=== PATIENT | female | born 1950 | race Caucasian/White ===

== ENCOUNTER 2019-11-19 07:22 | Outpatient (CLI) | payer MEDICARE, BC, SELFPAY ==
--- NOTE | 2019-11-19 08:34 | MM_ITS ---
WS: [id number] BILATERAL SCREENING MAMMOGRAM WITH NILA DISPLACEMENT VIEWS. CAD PERFORMED. HISTORY: SCREENING COMPARISON: 11/09/2018, 10/16/2018, 10/13/2017. Bilateral craniocaudal and mediolateral like views are performed. Nila displacement views in CC and MLO projection also performed. Breasts composition: The breasts are heterogeneously dense, which may obscure small masses. Bilatera l prepectoral implants remain intact. Hyperdense masses in the medial inferior RIGHT breast are stabl e. There are a few benign calcifications within each breast. No suspicious persistent masses. FOLLOW-UP: 1 Year Follow-up MM/[id number] IMPRESSION: BI-RADS: 2-Benign
== END 2019-11-19 07:23 | disposition home or self-care (01) ==
PROVIDERS: Family Provider Family Medicine; PCP Family Medicine; Visit Provider Family Medicine
DX: Z12.31 Encounter for screening mammogram for malignant neoplasm of breast (principal)
CPT/HCPCS: 77067

== ENCOUNTER 2020-11-20 15:17 | Outpatient (CLI) | payer MEDICARE, BC, SELFPAY ==
--- NOTE | 2020-11-20 15:23 | MM_ITS ---
WS: [id number] BILATERAL SCREENING MAMMOGRAM WITH NILA DISPLACEMENT VIEWS. CAD PERFORMED. HISTORY: SCREENING COMPARISON: 11/19/2019 and 11/09/2018 Bilateral craniocaudal and mediolateral like views are performed. Nila displacement views in CC and MLO projection also performed. Breasts composition: The breasts are heterogeneously dense, which may obscure small masses. Prepecto ral implants are intact. There are benign calcifications in each breast. Stable nodules in the medial RIGHT breast. No suspicious calcification or mass. MM/[id number] IMPRESSION: BI-RADS: 2-Benign FOLLOW-UP: 1 Year Follow-up
== END 2020-11-20 15:18 | disposition home or self-care (01) ==
LOC: RADSHAW 15:21
PROVIDERS: Family Provider Family Medicine; PCP Family Medicine; Visit Provider Family Medicine
DX: Z12.31 Encounter for screening mammogram for malignant neoplasm of breast (principal)
CPT/HCPCS: 77067

== ENCOUNTER 2021-12-30 10:28 | Outpatient (CLI) | payer MEDICARE, BC, SELFPAY ==
--- NOTE | 2021-12-30 10:38 | MM_ITS ---
WS: [id number] BILATERAL DIGITAL SCREENING MAMMOGRAPHY WITH CAD CLINICAL INFORMATION: SCREENING HISTORY: Screening mammogram. No current complaints. COMPARISON: November 20, 2020 TECHNIQUE: Bilateral CC and MLO views. FINDINGS: Stable bilateral breast implants appear mammographically intact. The breasts are composed of heterogeneous fibroglandular density tissue, which can limit the detectio n of small underlying mass lesions. Stable dystrophic and lucent centered calcifications RIGHT breast . Stable ovoid nodule RIGHT inferior breast. No suspicious mass, asymmetry, calcifications, or scott ectural distortion. No evidence of malignancy. MM/[id number] IMPRESSION: BI-RADS: 2-Benign FOLLOW UP: 1 Year Follow-up Recommend return to annual screening mammography.
== END 2021-12-30 10:29 | disposition home or self-care (01) ==
LOC: RADSHAW 10:36
PROVIDERS: Family Provider Family Medicine; PCP Family Medicine; Visit Provider Family Medicine
DX: Z12.31 Encounter for screening mammogram for malignant neoplasm of breast (principal)
CPT/HCPCS: 77067

== ENCOUNTER 2023-01-04 11:05 | Outpatient (CLI) | payer MEDICARE, BC, SELFPAY ==
--- NOTE | 2023-01-04 11:23 | MM_ITS ---
WS: [id number] BILATERAL SCREENING DIGITAL BREAST MAMMOGRAPHY WITH NILA DISPLACEMENT VIEWS. CAD PERFORMED. HISTORY: SCREENING COMPARISON: 12/30/2021, 11/20/2020 Bilateral craniocaudal and mediolateral oblique views are performed with tomosynthesis and SM. Nila displacement views in CC and MLO projection also performed. Breasts composition: The breasts are heterogeneously dense, which may obscure small masses. Benign calcification upper-outer quadrant of the RIGHT breast. There is an additional calcification i n the medial RIGHT breast. There are no suspicious masses or distortion. Breast implants are intact. No capsular contraction. Very similar to prior studies. IMPRESSION: MM/[place] [id number] BI-RADS: 2-Benign FOLLOW-UP: 1 Year Follow-up
== END 2023-01-04 11:06 | disposition home or self-care (01) ==
PROVIDERS: PCP Family Medicine; Visit Provider Family Medicine
DX: Z12.31 Encounter for screening mammogram for malignant neoplasm of breast (principal)
CPT/HCPCS: 77063; 77067

== ENCOUNTER 2024-07-05 10:36 | Inpatient (IN) | payer MEDICARE, BC, SELFPAY ==
[2024-07-05] VITALS (20 sets, daily range): BP systolic 111–175; BP diastolic 51–95; PULSE 74–95; RESP 15–18; TEMP 36.6–38.6; O2SAT 90–96; BMI 29.4
[2024-07-05 11:27] LABS: Basophils % 0.2 %; Eosinophils % 0.1 %; Hematocrit 44.3 % (36-47); Lymphocytes # 1.1 10^3/uL (0.8-4.8); Lymphocytes % 7.7 %; Mean Corpuscular HGB Conc 33.4 g/dL (30-55); Mean Corpuscular Hemoglobin 32.2 pg (27-33); Mean Corpuscular Volume 96.5 fl (85-98); Mean Platelet Volume 9.8 fL (7.4-10.4); Monocytes # 0.9 10^3/uL (0.2-0.9); Monocytes % 6.6 %; Neutrophils # 11.98 10^3/uL (1.8-7.7); Neutrophils % 84.8 %; Nucleated Red Blood Cells % 0 %; Platelet Count 185 10^3/cmm (157-399); Red Blood Count 4.59 10^6/uL (3.85-5.65); Red Cell Distribution Width 12.9 % (12.1-15.1); White Blood Count 14.14 10^3/uL (3.29-11.43)
--- NOTE | 2024-07-05 11:27 | XR_ITS ---
WS: [id number] Examination: XR KUB [id number] Reason for Exam: abd pain Date: 07/05/2024 Comparison: None. Findings: No free air is identified on the film labeled upright. Surgical clips are identified in the right upper quadrant Air and stool are seen within the colon. No abnormally distended loops of small bowel are identified. The psoas margins are identified. XR/XR KUB [id number] Impression: No obstruction or free air is suspected.
--- NOTE | 2024-07-05 11:31 | CT_ITS ---
WS: [id number] CT ABDOMEN AND PELVIS WITH CONTRAST HISTORY: abd pain TECHNIQUE: Imaging performed of the abdomen and pelvis with IV contrast. Single phase imaging of the abdomen. Coronal and sagittal reformats are submitted. All CT scans at [facility] use at sofi st one of these dose optimization techniques: automated exposure control; mA and/or kV adjustment per patient size (includes targeted exams where dose is matched to clinical indication); or iterative re construction. IV CONTRAST: Omnipaque 350; 100 mL IV. Oral contrast: No DLP: 556.11 mGy.cm COMPARISON: 05/27/2017 Lower thorax: Lung bases are clear. Heart is normal size. Large hiatal hernia. Liver/biliary system: Normal size liver. There is mild intrahepatic duct dilatation which was also pr esent in 2017. Gallbladder: Status post cholecystectomy. Pancreas: Normal size pancreas and pancreatic duct. No adjacent inflammation. Spleen: Normal size spleen. No mass or infarct. Adrenal glands: Mild bilateral adrenal gland thickening. Right kidney: Cortical cyst 2.2 x 1.9 cm in the upper pole. No obstruction. Left: No obstruction. Several cortical cysts with the largest measuring 1.5 x 1.4 cm. Aorta: Moderate atherosclerosis with no aneurysm. Calcified plaque at the origins of the SMA and suresh ac axis. Lymphadenopathy: Small lymph node in the RIGHT lower quadrant with hyperemia. Free fluid: There is small amount of free fluid in the RIGHT lower quadrant. GI tract: Stomach is nondistended. No small bowel obstruction. Increasing fluid in the mid to distal small bowel. The cecum is very deep within the RIGHT pelvis. There is a focal perforation centered in the RIGHT lower quadrant closely associated with the appendix. The appendix is visualized and is enl arged and edematous measuring up to 9 mm. Along the distal tip of the appendix there is infiltrating air which is extraluminal. There is no abscess yet. There is fluid extending distally adjacent to sev eral small bowel loops with mild wall thickening and hyperemia. Additional constipation in the distal colon. Numerous diverticula distally in the sigmoid. There is adjacent wall thickening of the sigmoi d which is contiguous with the inflammatory process in the RIGHT lower quadrant. Abdominal wall: Unremarkable abdominal wall. No hernia. Pelvis: Mildly distended bladder. Small amount of free fluid in the RIGHT adnexa along with soft tiss ue inflammation. Bones: Increase in lumbar lordosis. CT/CT abdomen pelvis w con* [id number] IMPRESSION: 1. Free air associated with the perforated viscus in the RIGHT lower quadrant. Free air is contiguous with an abnormal appendix. Favor appendicitis with rupt ure with adjacent free air. No abscess at this time. 2. Small amount of free fluid extending into the RIGHT adnexa contiguous with the abnormal appendix. 3. There is also additional mild inflammation of the sigmoid due to its close association with the RIGHT lower quadrant inflammation. Secondary findings of d iverticulitis. 4. Prior cholecystectomy. 5. Large hiatal hernia. Notified Blanca Peguero MD at 07/05/2024 12:57 PM.
--- NOTE | 2024-07-05 11:39 | ED_ITS ---
HPI - Abdominal Pain 2 General: Chief Complaint: Abdominal Pain Stated Complaint: bowel trouble Time Seen by Provider: 07/05/24 11:26 Source: patient Mode of arrival: ambulatory Limitations: no limitations History of Present Illness: 73-year-old female states she been havin g some abdominal pain since Tuesday states it started as an upper abdominal pain but states that today its gotten much worse and is now in her lower abdomen. States pain sharp in nature she rates it a 6 out of 10 she is febrile is aware. She denies any diarrhea or vomiting. Denies any worsening from factors Associated Symptoms: Reports fever(s); Denies chills, diarrhea, dysuria, nausea and vomiting Related Data Home Medications Medication Instructions Recorded Confirmed Lactobacillus acidophilus 100 mg PO DAILY 07/05/24 07/05/24 (Acidophilus capsule) ascorbic acid (vitamin C) 500 mg 250 mg PO DAILY 07/05/24 07/05/24 tablet (Vitamin C) loratadine 10 mg tablet (Claritin) 10 mg PO DAILY 07/05/24 07/05/24 omega 6-ins-ujy-fish oil 1,000 mg 1 cap PO DAILY 07/05/24 07/05/24 (120 mg-180 mg) capsule (Fish Oil) Allergies Allergy/AdvReac Type Severity Reaction Status Date / Time No Known Allergies Allergy Unverified 04/23/21 12:41 Review of Systems 2 Const: Reports: fever(s); Denies: chills, body aches or change in appetite ENMT: Denies: throat pain or dental pain Card: Denies: chest pain Resp: Denies: dyspnea GI: Reports: abdominal pain; Denies: nausea, vomiting or diarrhea : Denies: dysuria Musc: Denies: neck pain or back pain Skin/Breast: Denies: rash Neuro: Denies: headache(s) Physical Exam 2 Const: COMMON NORMALS: no acute distress, patient oriented x3 and healthy appearing HENMT: COMMON NORMALS: normocephalic and atraumatic HEAD & SCALP: n ormocephalic and atraumatic Neck/C-Spine: COMMON NORMALS: full ROM and supple Chest: COMMONS NORMALS: normal inspection of the chest Resp: COMMON NORMALS: normal respiratory effort, No retractions, No use of accessory muscles and clear to auscultation bilaterally AUSCULTATION: clear to auscultation bilaterally Cardio: COMMON NORMALS: regular rate, regular rhythm and No murmurs present (Cardio) RATE: regular rate RHYTHM: regular rhythm GI: COMMON NORMALS: Normal to inspection, nondistended, normoactive bowel sounds present, Soft to palpation and no masses PALPATION: Yes Soft to palpation and Yes Tenderness to palpation present (GI) Details: RLQ Extremity: COMMON NORMALS: normal to inspection and full ROM Neuro: COMMON NORMALS: patient oriented x3, moves all extremities and no focal motor deficits Psych: COMMON NORMALS: mental status grossly normal, Normal thought process present and cooperative THOUGHT PROCESS: Normal thought process present Skin: COMMON NORMALS: no rashes or lesions noted and no wounds GENERAL SKIN EXAM: no rashes or lesions noted Course 2 Vital Signs: Vital signs: Vital Signs Temperature 101.4 F H 07/05/24 11:20 Pulse Rate 90 07/05/24 12:09 Respiratory Rate 16 07/05/24 12:09 Blood Pressure 137/62 07/05/24 12:09 Pulse Oximetry 93 07/05/24 12:09 Oxygen Delivery Me thod Room Air 07/05/24 12:09 MDM - Abdominal Pain Medical Decision Making Patient presents with appendicitis that has ruptured 5 spoke to surgeon on-call who is taking patient OR to give IV antibiotics here. Medical Records I reviewed the patient's medical records. Lab Data I reviewed the patient's lab results. 07/05/24 11:01 07/05/24 11:01 Labs/Radiology: Radiology Impressions KUB X-Ray 07/05/24 11:27 Impression: No obstruction or free air is suspected. Abdomen/Pelvis CT 07/05/24 11:31 IMPRESSION: 1. Free air associated with the perforated viscus in the RIGHT lower quadrant. Free air is contiguous with an abnormal appendix. Favor appendicitis with rupture with adjacent free air. No abscess at this time. 2. Small amount of free fluid extending into the RIGHT adnexa contiguous with the abnormal appendix. 3. There is also additional mild inflammation of the sigmoid due to its close association with the RIGHT lower quadrant inflammation. Secondary findings of diverticulitis. 4. Prior cholecystectomy. 5. Large hiatal hernia. Notified Blanca Peguero MD at 07/05/2024 12:57 PM. Laboratory Results WBC 14.14 10^3/uL (3.29-11.43) H 07/05/24 11:01 RBC 4.59 10^6/uL (3.85-5.65) 07/05/24 11:01 Hgb 14.80 g/dL (11.27-16.99) 07/05/24 11:01 Hct 44.3 % (36-47) 07/05/24 11:01 MCV 96.5 fl (85-98) 07/05/24 11:01 MCH 32.2 pg (27-33) 07/05/24 11:01 MCHC 33.4 g/dL (30-55) 07/05/24 11:01 RDW 12.9 % (12.1-15.1) 07/05/24 11:01 Plt Count 185 10^3/cmm (157-399) 07/05/24 11:01 MPV 9.8 fL (7.4-10.4) 07/05/24 11:01 Neut % (Auto) 84.8 % 07/05/24 11:01 Lymph % (Auto) 7.7 % 07/05/24 11:01 [place] % (Auto) 6.6 % 07/05/24 11:01 Eos % (Auto) 0.1 % 07/05/24 11:01 Baso % (Auto) 0.2 % 07/05/24 11:01 Neut # (Auto) 11.98 10^3/uL (1.8-7.7) H 07/05/24 11:01 Lymph # (Auto) 1.1 10^3/uL (0.8-4.8) 07/05/24 11:01 [place] # (Auto) 0.9 10^3/uL (0.2-0.9) 07/05/24 11:01 Eos # (Auto) 0.0 10^3/uL (0.0-0.8) 07/05/24 11:01 Baso # (Auto) 0.0 10^3/uL (0.0-0.1) 07/05/24 11:01 Nucleated RBC % (auto) 0 % 07/05/24 11:01 Nucleated RBCs # 0.0 /100WBC 07/05/24 11:01 Sodium 134 mmol/L (136-145) L 07/05/24 11:01 Potassium 4.0 mmol/L (3.5-5.1) 07/05/24 11:01 Chloride 96 mmol/L (98-107) L 07/05/24 11:01 Carbon Dioxide 25 mmol/L (22-29) 07/05/24 11:01 Anion Gap 17.0 (5-19) 07/05/24 11:01 BUN 11 mg/dL (8-23) 07/05/24 11:01 Creatinine 0.8 mg/dL (0.5-0.9) 07/05/24 11:01 GFR Calculation Not Reportable 07/05/24 11:01 Glucose 139 mg/dL (65-115) H 07/05/24 11:01 Calculated Osmolality 280 mOsm/kg (285-295) L 07/05/24 11:01 Lactic Acid 1.3 mmol/L (0.5-2.2) 07/05/24 11:01 Calcium 9.1 mg/dL (8.5-10.5) 07/05/24 11:01 Total Bilirubin 1.7 mg/dL (0.15-1.2) H 07/05/24 11:01 AST 14 U/L (0-32) 07/05/24 11:01 ALT 12 U/L (0-33) 07/05/24 11:01 Alkaline Phosphatase 107 U/L (35-105) H 07/05/24 11:01 Total Protein 7.9 g/dL (6.6-8.7) 07/05/24 11:01 Albumin 4.2 g/dL (3.5-5.2) 07/05/24 11:01 Globulin 3.7 g/dL (1.3-4.6) 07/05/24 11:01 Lipase 27 U/L (13-60) 07/05/24 11:01 Urine Color [place] (Yellow) A 07/05/24 11:54 Urine Appearance Cloudy (CLEAR) A 07/05/24 11:54 Urine pH 6.0 (5-7) 07/05/24 11:54 Ur Specific [place] 1.016 (1.005-1.030) 07/05/24 11:54 Urine Protein 1+ (Negative) A 07/05/24 11:54 Urine Glucose (UA) Negative (Normal) 07/05/24 11:54 Urine Ketones 1+ (Negative) H 07/05/24 11:54 Urine Blood Trace (Negative) A 07/05/24 11:54 Urine Nitrate Negative (Negative) 07/05/24 11:54 Urine Bilirubin Negative (Negative) 07/05/24 11:54 Urine Urobilinogen 1.0 mg/dL (Negative) 07/05/24 11:54 Ur Leukocyte Esterase 2+ (Negative) A 07/05/24 11:54 Urine RBC 0-4 /hpf (0-2) H 07/05/24 11:54 Urine WBC 5-10 /hpf (0-5) H 07/05/24 11:54 Ur Squamous Epith Cells 0-4 /hpf (0-5) H 07/05/24 11:54 Amorphous Sediment Trace /hpf 07/05/24 11:54 Urine Bacteria 1+ /hpf (NONE) H 07/05/24 11:54 Urine Mucus None /hpf 07/05/24 11:54 All radiology interpretation(s) finalized by discharge Discharge Plan Discharge Patient Disposition: Admitted As Inpatient Clinical Impression: Acute appendicitis Condition: Stable Prescriptions: No Action Vitamin C 500 mg Tablet 250 mg PO DAILY Acidophilus Capsule 100 mg PO DAILY Claritin 10 mg Tablet 10 mg PO DAILY Fish Oil 1,000 mg (120 mg-180 mg) Capsule 1 cap PO DAILY Referrals: Kym Lazo MD [Primary Care Provider] - Coding Level of Care Code ED Document Specialist for Virginie Dow
[2024-07-05 11:49] LABS: Alanine Aminotransferase 12 U/L (0-33); Albumin Level 4.2 g/dL (3.5-5.2); Alkaline Phosphatase 107 U/L (35-105); Aspartate Amino Transferase 14 U/L (0-32); Blood Urea Nitrogen 11 mg/dL (8-23); Calcium 9.1 mg/dL (8.5-10.5); Carbon Dioxide 25 mmol/L (22-29); Chloride 96 mmol/L (98-107); Creatinine Clr Calc Pharmacy 61.7721; Globulin 3.7 g/dL (1.3-4.6); Glucose 139 mg/dL (65-115); Lactic Sepsis W/Reflex 1.3 mmol/L (0.5-2.2); Lipase 27 U/L (13-60); Osmolality Calculated 280 mOsm/kg (285-295); Sodium 134 mmol/L (136-145); Total Bilirubin 1.7 mg/dL (0.15-1.2); Total Protein 7.9 g/dL (6.6-8.7)
[2024-07-05] MEDS: sodium chloride 0.9% 1,000 ML 999 ML IV ×2 (11:59→13:36)
[2024-07-05] MEDS: ondansetron 2 mg/ML SDV 2 mL 4 MG IVP (12:01)
[2024-07-05] MEDS: morphine 4 mg/mL SDV 1 mL IVP (12:03)
[2024-07-05] MEDS: acetaminophen 1,000 MG/100 ML PIGGYBACK 400 MG IV (12:07)
[2024-07-05 12:18] LABS: Charge for UA Resulting for Rev
[2024-07-05 12:21] LABS: Bilirubin Urine Negative (Negative); Blood Urine Trace (Negative); Glucose Urine UA Negative (Normal); Ketones Urine 1+ (Negative); Leukocyte Esterase Urine 2+ (Negative); Nitrate Urine Negative (Negative); Protein Urine 1+ (Negative); Specific Gravity, Urine 1.016 (1.005-1.030); Urine Appearance Cloudy (CLEAR)
[2024-07-05] MEDS: iohexol 350 mg/mL 500 mL Btl (per mL) IV (12:24)
--- NOTE | 2024-07-05 12:47 | PC.PHAR ---
Pt states she does not take any prescription medications.
[2024-07-05 13:01] LABS: UA Manual Slide Review YES; UA Slide Review UA Slide Review Perf; Urine Color Orange (Yellow)
[2024-07-05 13:03] LABS: Add Urine Culture? No; Amorphous Sediment Urine TRACE /hpf; Bacteria Urine 1+ /hpf; RBC Urine 0-4 /hpf (0-2); Squamous Epithelial Cell Urine 0-4 /hpf (0-5)
--- NOTE | 2024-07-05 13:26 | P.HP_ITS ---
Providers/Chief Complaint 2 Primary Care Provider: Kym Lazo MD Chief Complaint: bowel trouble History of Present Illness Geri Carlisle is a 73 year old female who presented to the hospital with a 2-day history of abdominal pain. She reports that she is having pain across her lower abdomen but its worst in the right lower quadrant. The pain does not radiate. Palpation and movement make the pain worse. Nothing seems to make the pain better. She denies any nausea, emesis, diarrhea, constipation, hematochezia and/or melena. CT the abdomen pelvis shows acute perforated appendicitis Review of Systems 2 General: Reports: 10 or more systems reviewed and unremarkable except in HPI and below Medications/Allergies Home Medications Medication Instructions Recorded Confirmed Last Taken Type Lactobacillus acidophilus 100 mg PO DAILY 07/05/24 07/05/24 07/05/24 History (Acidophilus capsule) ascorbic acid (vitamin C) 500 mg 250 mg PO DAILY 07/05/24 07/05/24 07/05/24 History tablet (Vitamin C) loratadine 10 mg tablet (Claritin) 10 mg PO DAILY 07/05/24 07/05/24 07/05/24 History omega 7-rxo-cya-fish oil 1,000 mg 1 cap PO DAILY 07/05/24 07/05/24 07/05/24 History (120 mg-180 mg) capsule (Fish Oil) Allergies Allergy/AdvReac Type Severity Reaction Status Date / Time No Known Allergies Allergy Unverified 04/23/21 12:41 PFSH Acute 2 PFSH: Surgical History H/O: hysterectomy Hx laparoscopic cholecystectomy Vitals/I&O/Wt Last Vital Signs Temp 101.4 F H 07/05/24 11:20 Pulse 82 07/05/24 13:00 Resp 16 07/05/24 12:09 BP 112/59 07/05/24 13:00 Pulse Ox 90 07/05/24 13:00 O2 Del Method Room Air 07/05/24 13:00 Weight last 48 hrs Weight 166 lb Physical Exam 2 Narrative: General : Patient is well developed , no acute distress, oriented x3 Head : Normal cephalic, a-traumatic. Ears : Pinnae and external canal are normal. Hearing is normal. Eyes : PERRLA, Sclera and injection are normal. No conjunctival discharge. Nose : Mucous membranes are without erythema. Throat : buccal mucosa is normal, gums are without significant recession or hypertrophy. Lungs : Equal chest rise bilaterally, no use of accessory muscles, trachea is midline. Cor : Rate and rhythm are normal. Abdomen : Soft, mild distention, tender to palpation right lower quadrant, negative Rovsing's, no g/r/m Extremities : No edema, no cyanosis or clubbing, dorsalis pedis pulses are present bilaterally, non-tender to palpation of calves. Upper extremities are normal bilaterally. Back : non-tender to palpation, no CVA tenderness. Neuro : CN II - XII intact, Upper and lower extremities have equal and full strength Data 07/05/24 11:01 07/05/24 11:01 A&P Assessment and plan (1) Acute perforated appendicitis: Plan Laparoscopic Appendectomy The risks and benefits of the procedure, including but not limited to, bleeding, infection, scar, numbness, pain, damage to surrounding structures, conversion to an open procedure, were explained to the patient. He is understanding of the risks and wishes to proceed. Attestations 2 Medical Necessity Statement*: Patient will typically need to stay 2 to 5 days for IV antibiotics and drainage after surgery for perforated appendicitis Coding Level of Care Code 26725 Diagnoses Acute perforated appendicitis K35.32
--- NOTE | 2024-07-05 13:34 | P.ANESASSM_ITS ---
Pre-Anesthetic Assessment Height/Weight: Height 5 ft 3 in Weight 166 lb Temp Pulse Resp BP Pulse Ox O2 Del Method 101.4 F H 82 16 112/59 90 Room Air 07/05/24 11:20 07/05/24 13:00 07/05/24 12:09 07/05/24 13:00 07/05/24 13:00 07/05/24 13:00 Operation Date: 07/05/24 13:30 Proposed Procedures p Laparoscopic Appendectomy(Not Applicable) - Seferino Monroe DO Familial anesthetic complications: None Social No alcohol and No tobacco Exam alert, oriented x 3, clear to auscultation bilaterally and regular rate & rhythm Airway Submandibular: within normal limits Cervical ROM: within normal limits Mallampati: Class III Dentition: full Anesthetic Plan ASA status: 2E Anesthesia: General Other: No prior issues with anesthesia N.p.o. since yesterday Patient takes no medications at home Denies any pulmonary cardiac complications Labs currently indicate leukocytosis. She is febrile with temp of 101.4 METS greater than 4 Plan for GETA Medications/Allergies Home Medications Medication Instructions Recorded Confirmed Last Taken Type Lactobacillus acidophilus 100 mg PO DAILY 07/05/24 07/05/24 07/05/24 History (Acidophilus capsule) ascorbic acid (vitamin C) 500 mg 250 mg PO DAILY 07/05/24 07/05/24 07/05/24 History tablet (Vitamin C) loratadine 10 mg tablet (Claritin) 10 mg PO DAILY 07/05/24 07/05/24 07/05/24 History omega 1-xjj-ylo-fish oil 1,000 mg 1 cap PO DAILY 07/05/24 07/05/24 07/05/24 History (120 mg-180 mg) capsule (Fish Oil) Allergies Allergy/AdvReac Type Severity Reaction Status Date / Time No Known Allergies Allergy Unverified 04/23/21 12:41 [facility] Anesthesia Surgical History H/O: hysterectomy Hx laparoscopic cholecystectomy Data Anesthesia 07/05/24 11:01 07/05/24 11:01 Short CBC 07/05/24 Range/Units 11:01 WBC 14.14 H (3.29-11.43) 10^3/uL Hgb 14.80 (11.27-16.99) g/dL Hct 44.3 (36-47) % MCV 96.5 (85-98) fl Plt Count 185 (157-399) 10^3/cmm Neut % (Auto) 84.8 % Neut # (Auto) 11.98 H (1.8-7.7) 10^3/uL BMP 07/05/24 11:01 Sodium 134 L Potassium 4.0 Chloride 96 L Carbon Dioxide 25 BUN 11 Creatinine 0.8 Glucose 139 H Calcium 9.1 Liver Function 07/05/24 Range/Units 11:01 Total Bilirubin 1.7 H (0.15-1.2) mg/dL AST 14 (0-32) U/L ALT 12 (0-33) U/L Alkaline Phosphatase 107 H (35-105) U/L Albumin 4.2 (3.5-5.2) g/dL Urine 07/05/24 Range/Units 11:54 Urine Color [place] A (Yellow) Urine Appearance Cloudy A (CLEAR) Urine pH 6.0 (5-7) Ur Specific [place] 1.016 (1.005-1.030) Urine Protein 1+ A (Negative) Urine Glucose (UA) Negative (Normal) Urine Ketones 1+ H (Negative) Urine Nitrate Negative (Negative) Urine Bilirubin Negative (Negative) Ur Leukocyte Esterase 2+ A (Negative) Urine RBC 0-4 H (0-2) /hpf Urine WBC 5-10 H (0-5) /hpf Cardiac Studies: 2 No Data to Display
[2024-07-05] MEDS: piperacillin-tazobactam 3.375 GM in sodium chloride 0.9% (plus) 50 ML IV ×2 (13:45→20:44)
[2024-07-05] MEDS: lidocaine-epi 2% PF 1:200,000 20 mL SDV XX (14:41)
--- NOTE | 2024-07-05 15:11 | PM.OP ---
Operative Report Date of procedure: July 05, 2024 Pre-op diagnosis: Perforated appendicitis Post-op diagnosis: Acute perforated appendicitis with feculent peritonitis Procedure done: Laparoscopic appendectomy Implants: 19 [place] Citizen Hunter drain Specimens removed/disposition: Appendix Surgeon: Seferino Monroe DO Anesthesia: General and Local Estimated blood loss (mL): 5 Complications: None apparent Brief History: This a very pleasant 73-year-old female who presented to the hospital with perforated appendicitis. Laparoscopic appendectomy was indicated. The risks and benefits were explained and documented. Procedure: Patient was wheeled into the operative room and placed on the OR table in a supine position. Abdomen was inspected prepped and draped in usual sterile fashion. Time-out was performed and all present were in agreement. A 15 blade scalp was used to make a stab incision in the left upper quadrant and intra-abdominal insufflation was achieved using a Veress needle. After localizing the tissue incisions were made and a 12 millimeter trocar was placed into the umbilicus as well as a 5mm in the right lower quadrant and a 5 mm in the left lower quadrant . The white line of Toldt was taken down sharply. Down in the right half of the pelvis there was stool surrounded by dense omental adhesions. This was carefully suctioned. A small perforated appendix was identified.. I used the laparoscopic ligature to ligate the mesoappendix at the base. I then used 2 PDS endo-loops to snare the base of the appendix. I then used the laparoscopic ligature to ligate the appendix distally. The appendix necrotic omentum and stool was removed from the abdomen using an Endo-Catch bag through the umbilical incision. I examined the abdomen and no further pathology was identified. Hemostasis was noted. The operative area was irrigated and suctioned. A 19 [place] Citizen Hunter drain was placed into the right hemipelvis and up the right paracolic gutter through the right lower quadrant incision. Drain was sewn in place with 3-0 silk. I then closed the umbilical site with a Lex-Lisa and 0 Vicryl suture in a figure of 8 fashion. All ports removed. Skin was washed and dried. Incisions were closed with 4-0 nylon in a simple interrupted fashion. Sterile bandages were applied. Patient tolerated the procedure well.
--- NOTE | 2024-07-05 16:31 | ANE.PACU2 ---
Inpatient post-anesthesia follow up: Airway intact: Yes Vital signs: Temperature 97.8 F Pulse Rate 86 Respiratory Rate 16 Blood Pressure 137/68 Pulse Oximetry 92 Oxygen Delivery Me thod Room Air Oxygen Flow Rate Fraction of Inspir ed Oxygen Hydration adequate: Yes Nausea and vomiting: No Pain level: 1 Mental status: Baseline
[2024-07-05] MEDS: HYDROcodone-acetaminophen 5-325 mg Tablet 1 TAB PO ×2 (17:02→22:17)
[2024-07-05] MEDS: pantoprazole 40 mg SDV IVP (17:13)
[2024-07-05] MEDS: heparin 5,000 unit/mL INJ 1 mL 5000 UNIT SUBCUT (17:13)
[2024-07-05] MEDS: dextrose 5%-sod chloride 0.45% 1,000 ML 100 ML IV (17:14)
--- NOTE | 2024-07-05 18:25 | PC.NURSE ---
pt care taken over by rylee mccarty at 1300.
[2024-07-05] MEDS: HYDROmorphone 1 mg/mL INJ 1 mL IVP (18:28)
[2024-07-06] VITALS (7 sets, daily range): BP systolic 103–129; BP diastolic 56–76; PULSE 66–87; RESP 15–18; TEMP 36.4–36.8; O2SAT 90–97
[2024-07-06] MEDS: dextrose 5%-sod chloride 0.45% 1,000 ML 100 ML IV ×3 (02:32→21:24)
[2024-07-06] MEDS: heparin 5,000 unit/mL INJ 1 mL 5000 UNIT SUBCUT ×2 (02:32→15:47)
[2024-07-06] MEDS: HYDROcodone-acetaminophen 5-325 mg Tablet 1 TAB PO ×4 (02:40→21:21)
[2024-07-06] MEDS: piperacillin-tazobactam 3.375 GM in sodium chloride 0.9% (plus) 50 ML IV ×3 (04:06→21:21)
[2024-07-06 05:19] LABS: Basophils % 0.1 %; Hematocrit 37.5 % (36-47); Lymphocytes # 1.1 10^3/uL (0.8-4.8); Lymphocytes % 10.8 %; Mean Corpuscular HGB Conc 32.3 g/dL (30-55); Mean Corpuscular Hemoglobin 31.8 pg (27-33); Mean Corpuscular Volume 98.4 fl (85-98); Mean Platelet Volume 9.5 fL (7.4-10.4); Monocytes # 0.7 10^3/uL (0.2-0.9); Monocytes % 6.4 %; Neutrophils # 8.36 10^3/uL (1.8-7.7); Neutrophils % 82.3 %; Nucleated Red Blood Cells % 0 %; Platelet Count 141 10^3/cmm (157-399); Red Blood Count 3.81 10^6/uL (3.85-5.65); Red Cell Distribution Width 12.9 % (12.1-15.1); White Blood Count 10.16 10^3/uL (3.29-11.43)
[2024-07-06 05:43] LABS: Anion Gap 14.2 (5-19); Blood Urea Nitrogen 9 mg/dL (8-23); Carbon Dioxide 23 mmol/L (22-29); Chloride 103 mmol/L (98-107); Creatinine Clr Calc Pharmacy 64.0368; Glucose 219 mg/dL (65-115); Magnesium 1.8 mg/dL (1.7-2.3); Osmolality Calculated 287 mOsm/kg (285-295); Potassium 4.2 mmol/L (3.5-5.1); Sodium 136 mmol/L (136-145)
--- NOTE | 2024-07-06 09:33 | PC.CHAP ---
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 [] Patient/Family/Request visit [] Outpatient visit [] Follow-up visit [] Physician referral [] Code/Alert [x] Routine visit [] Staff referral [] Actively dying [] Patient sleeping [] Family support [] [] Out of room [] Palliative care [] [] Receiving care in room [] Pre-surgical visit [] Trauma [] Long length of stay [] ICU visit [] Other: Relational/Emotional Strength [] Patient feels connected with others/family/visitors/staff [] Distress [] Loneliness/isolation [] Abandonment Spirituality of Patient [x] Person of Jacki [x] Attends Rastafari of their Jacki [x] Believes in Prayer [x] Reads Bible or Jew materials [] There are Spiritual issues to be addressed 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 Operator Interventions [] Prayer [] Active listening [] Non-anxious presence [] Spiritual/emotional support [] Crisis/trauma care [] Spiritual counseling [] Bereavement support [] Provided bereavement packet [] Provided Bible/devotional materials [] Provided toy/stuffed animal, coloring book to patient or family member [] Provided Communion [] Anointing/[place] [] Salvation [] Completed spiritual assessment [] Other: Impact on Illness or Injury [] Angry [] Fearful [] Anxious [] Often cries [] Exhaustion [] Unable to work [] Unable to attend baptist [] Unable to walk/stand [] Unable to read [] Unable to drive [] Unable to eat/drink [] Unable to sleep [] Unable to be with family [] Patient intubated [] Other: 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
--- NOTE | 2024-07-06 09:46 | PC.SOCIAL ---
IMM Update pg 2 of IMM updated and reviewed w/ patient. Copy provided and copy dated, initialed and placed in chart.
[2024-07-06] MEDS: pantoprazole 40 mg SDV IVP (15:46)
--- NOTE | 2024-07-06 16:40 | P.PN_ITS ---
Subjective 2 Subjective: Patient seen and examined. Pain controlled Vitals/I&O/Wt Last Vital Signs Temp 98.0 F 07/06/24 15:21 Pulse 75 07/06/24 15:21 Resp 16 07/06/24 15:21 BP 129/76 07/06/24 15:21 Pulse Ox 93 07/06/24 15:21 O2 Del Method Room Air 07/06/24 15:21 07/06/24 07/06/24 07/06/24 06:59 14:59 22:59 Intake Total 980 / 3130 1179.333 / 1179.333 Balance 980 / 3060 1179.333 / 1179.333 Weight last 48 hrs Weight 178 lb 7 oz Weight 181 lb 9.6 oz Weight 166 lb Physical Exam 2 Narrative: General: No acute distress, awake alert and oriented x 3 Abdomen: Soft, nondistended, appropriately tender DEMARCO serosanguineous Data 07/06/24 05:07 07/06/24 05:07 A&P Assessment and plan (1) Acute perforated appendicitis: Plan Postop day #1 status post laparoscopic appendectomy for acute perforated appendicitis with feculent peritonitis Regular diet IV antibiotics She will need to stay for 5 days of IV antibiotics and get a repeat CT prior to discharge to make sure she has not developed any new abscesses Attestations 2 Medical Necessity Statement*: She will need to stay for 5 days of IV antibiotics and get a repeat CT prior to discharge to make sure she has not developed any new abscesses Coding Level of Care Code Acute Code for [facility] Fwd Diagnoses Acute perforated appendicitis K35.32
[2024-07-07] MEDS: heparin 5,000 unit/mL INJ 1 mL 5000 UNIT SUBCUT ×2 (03:45→16:24)
[2024-07-07] MEDS: piperacillin-tazobactam 3.375 GM in sodium chloride 0.9% (plus) 50 ML IV ×3 (03:46→19:34)
[2024-07-07 04:00] VITALS: BP 108/63; PULSE 78; RESP 16; TEMP 36.9; O2SAT 92
[2024-07-07 06:56] LABS: Basophils % 0.1 %; Eosinophils # 0.1 10^3/uL (0.0-0.8); Eosinophils % 0.9 %; Lymphocytes # 1.7 10^3/uL (0.8-4.8); Lymphocytes % 21.1 %; Mean Corpuscular HGB Conc 31.4 g/dL (30-55); Mean Corpuscular Hemoglobin 32.2 pg (27-33); Mean Corpuscular Volume 102.8 fl (85-98); Mean Platelet Volume 10.1 fL (7.4-10.4); Monocytes # 0.5 10^3/uL (0.2-0.9); Monocytes % 5.7 %; Neutrophils # 5.63 10^3/uL (1.8-7.7); Neutrophils % 71.9 %; Nucleated Red Blood Cells % 0 %; Platelet Count 150 10^3/cmm (157-399); Red Cell Distribution Width 13.2 % (12.1-15.1); White Blood Count 7.83 10^3/uL (3.29-11.43)
[2024-07-07] MEDS: HYDROcodone-acetaminophen 5-325 mg Tablet 1 TAB PO ×4 (06:58→23:35)
[2024-07-07 07:16] LABS: Blood Urea Nitrogen 7 mg/dL (8-23); Calcium 8.1 mg/dL (8.5-10.5); Carbon Dioxide 21 mmol/L (22-29); Chloride 105 mmol/L (98-107); Creatinine Clr Calc Pharmacy 65.6138; Glucose 119 mg/dL (65-115); Magnesium 1.7 mg/dL (1.7-2.3); Osmolality Calculated 281 mOsm/kg (285-295); Sodium 136 mmol/L (136-145)
--- NOTE | 2024-07-07 07:49 | PC.NURSE ---
Patient stated to this nurse to wait for doctor to come in before any more fluids were hung. Patient stated she is drinking plenty of fluids.
[2024-07-07 07:58] VITALS: BP 123/67; PULSE 88; RESP 18; TEMP 36.6; O2SAT 90
[2024-07-07 11:48] VITALS: BP 128/75; PULSE 80; RESP 18; TEMP 36.6; O2SAT 94
[2024-07-07] MEDS: magnesium sulfate premix 2 GM/50 ML PIGGYBACK IV (13:17)
[2024-07-07 16:07] VITALS: BP 126/77; PULSE 83; RESP 16; TEMP 36.6; O2SAT 92
[2024-07-07] MEDS: pantoprazole 40 mg SDV IVP (16:24)
--- NOTE | 2024-07-07 17:09 | P.PN_ITS ---
Subjective 2 Subjective: Pain controlled Vitals/I&O/Wt Last Vital Signs Temp 98 F 07/07/24 16:07 Pulse 83 07/07/24 16:07 Resp 16 07/07/24 16:07 BP 126/77 07/07/24 16:07 Pulse Ox 92 07/07/24 16:07 O2 Del Method Room Air 07/07/24 16:07 07/07/24 07/07/24 07/07/24 06:59 14:59 22:59 Intake Total 170 / 2992.666 2059 Output Total 30 / 70 Balance 140 / 2922.666 2059 Weight last 48 hrs Weight 187 lb 1.6 oz Weight 178 lb 7 oz Physical Exam 2 Narrative: Abdomen: Soft, nondistended, appropriately tender Drain serosanguineous Data 07/07/24 06:50 07/07/24 06:50 A&P Assessment and plan (1) Acute perforated appendicitis: Plan Postop day #2 status post laparoscopic appendectomy for acute perforated appendicitis with feculent peritonitis Regular diet IV antibiotics She will need to stay for 5 days of IV antibiotics and get a repeat CT prior to discharge to make sure she has not developed any new abscesses Attestations 2 Medical Necessity Statement*: She will need to stay for 5 days of IV antibiotics and get a repeat CT prior to discharge to make sure she has not developed any new abscesses Coding Level of Care Code Acute Code for [facility] Fwd Diagnoses Acute perforated appendicitis K35.32
[2024-07-07] MEDS: polyethylene glycol 3350 Pkt 17 gm PO (17:33)
[2024-07-07 20:00] VITALS: BP 129/76; PULSE 85; RESP 16; TEMP 36.7; O2SAT 95
[2024-07-08] VITALS: BP 132/73; PULSE 85; RESP 15; TEMP 36.9; O2SAT 91
[2024-07-08] MEDS: piperacillin-tazobactam 3.375 GM in sodium chloride 0.9% (plus) 50 ML IV ×2 (03:25→12:24)
[2024-07-08] MEDS: heparin 5,000 unit/mL INJ 1 mL 5000 UNIT SUBCUT (03:26)
[2024-07-08] MEDS: HYDROcodone-acetaminophen 5-325 mg Tablet 1 TAB PO ×2 (03:27→08:29)
[2024-07-08 04:00] VITALS: BP 116/70; PULSE 86; RESP 16; TEMP 36.8; O2SAT 93
[2024-07-08 04:58] LABS: Basophils % 0.3 %; Eosinophils # 0.2 10^3/uL (0.0-0.8); Eosinophils % 2.5 %; Hematocrit 36.3 % (36-47); Lymphocytes % 28.4 %; Mean Corpuscular HGB Conc 32.8 g/dL (30-55); Mean Corpuscular Hemoglobin 31.6 pg (27-33); Mean Corpuscular Volume 96.3 fl (85-98); Mean Platelet Volume 9.7 fL (7.4-10.4); Monocytes # 0.5 10^3/uL (0.2-0.9); Monocytes % 7.1 %; Neutrophils # 4.24 10^3/uL (1.8-7.7); Neutrophils % 61.1 %; Nucleated Red Blood Cells % 0 %; Platelet Count 209 10^3/cmm (157-399); Red Blood Count 3.77 10^6/uL (3.85-5.65); Red Cell Distribution Width 13.1 % (12.1-15.1); White Blood Count 6.93 10^3/uL (3.29-11.43)
[2024-07-08 05:16] LABS: Blood Urea Nitrogen 10 mg/dL (8-23); Calcium 8.9 mg/dL (8.5-10.5); Carbon Dioxide 24 mmol/L (22-29); Chloride 102 mmol/L (98-107); Creatinine Clr Calc Pharmacy 65.6138; Glucose 133 mg/dL (65-115); Magnesium 1.8 mg/dL (1.7-2.3); Osmolality Calculated 285 mOsm/kg (285-295); Sodium 137 mmol/L (136-145)
[2024-07-08 07:36] VITALS: BP 132/85; PULSE 71; RESP 18; TEMP 36.4; O2SAT 92
[2024-07-08] MEDS: polyethylene glycol 3350 Pkt 17 gm PO (08:28)
--- NOTE | 2024-07-08 11:43 | P.DS_ITS ---
Discharge Providers Date of Admission: 07/05/24 16:20 Date of Discharge: July 08, 2024 Attending Provider at Admission: Seferino Monroe DO Attending Provider at Discharge: Seferino Monroe DO Primary Care Provider: Kym Lazo MD Diagnoses at Discharge Discharge Diagnosis (1) Acute perforated appendicitis: Status: Acute Reason for Visit Reason for Visit: bowel trouble Hospital Course Hospital Course This is a very pleasant 73-year-old female presents to the hospital with abdominal pain. She is diagnosed with acute perforated appendicitis with feculent peritonitis. She stayed 3 days for IV antibiotics and drainage. She was doing very well and was discharged home in good condition Physical Exam Narrative: General : Patient is well developed , no acute distress, oriented x3 Head : Normal cephalic, a-traumatic. Ears : Pinnae and external canal are normal. Hearing is normal. Eyes : PERRLA, Sclera and injection are normal. No conjunctival discharge. Nose : Mucous membranes are without erythema. Throat : buccal mucosa is normal, gums are without significant recession or hypertrophy. Lungs : Equal chest rise bilaterally, no use of accessory muscles, trachea is midline. Cor : Rate and rhythm are normal. Abdomen : Soft, ND, appropriately tender, drain serosanguineous, no g/r/m Extremities : No edema, no cyanosis or clubbing, dorsalis pedis pulses are present bilaterally, non-tender to palpation of calves. Upper extremities are normal bilaterally. Back : non-tender to palpation, no CVA tenderness. Neuro : CN II - XII intact, Upper and lower extremities have equal and full strength Discharge Data Studies Completed and Pending Completed Studies During Hospitalization Category Date Time Status CT abdomen pelvis w con* [id number] Stat Cat Scan 07/05/24 11:31 Completed XR KUB [id number] Stat Exams 07/05/24 11:27 Completed Pending at discharge Category Date Time Status Pathology: Surgical [PTH] Routine Pth 07/05/24 15:12 Received Radiology Impressions KUB X-Ray 07/05/24 11:27 Impression: No obstruction or free air is suspected. Abdomen/Pelvis CT 07/05/24 11:31 IMPRESSION: 1. Free air associated with the perforated viscus in the RIGHT lower quadrant. Free air is contiguous with an abnormal appendix. Favor appendicitis with rupture with adjacent free air. No abscess at this time. 2. Small amount of free fluid extending into the RIGHT adnexa contiguous with the abnormal appendix. 3. There is also additional mild inflammation of the sigmoid due to its close association with the RIGHT lower quadrant inflammation. Secondary findings of diverticulitis. 4. Prior cholecystectomy. 5. Large hiatal hernia. Notified Blanca Peguero MD at 07/05/2024 12:57 PM. Laboratory Results WBC 6.93 10^3/uL (3.29-11.43) 07/08/24 04:53 RBC 3.77 10^6/uL (3.85-5.65) L 07/08/24 04:53 Hgb 11.90 g/dL (11.27-16.99) 07/08/24 04:53 Hct 36.3 % (36-47) 07/08/24 04:53 MCV 96.3 fl (85-98) D 07/08/24 04:53 MCH 31.6 pg (27-33) 07/08/24 04:53 MCHC 32.8 g/dL (30-55) 07/08/24 04:53 RDW 13.1 % (12.1-15.1) 07/08/24 04:53 Plt Count 209 10^3/cmm (157-399) D 07/08/24 04:53 MPV 9.7 fL (7.4-10.4) 07/08/24 04:53 Neut % (Auto) 61.1 % 07/08/24 04:53 Lymph % (Auto) 28.4 % 07/08/24 04:53 Wake % (Auto) 7.1 % 07/08/24 04:53 Eos % (Auto) 2.5 % 07/08/24 04:53 Baso % (Auto) 0.3 % 07/08/24 04:53 Neut # (Auto) 4.24 10^3/uL (1.8-7.7) 07/08/24 04:53 Lymph # (Auto) 2.0 10^3/uL (0.8-4.8) 07/08/24 04:53 Wake # (Auto) 0.5 10^3/uL (0.2-0.9) 07/08/24 04:53 Eos # (Auto) 0.2 10^3/uL (0.0-0.8) 07/08/24 04:53 Baso # (Auto) 0.0 10^3/uL (0.0-0.1) 07/08/24 04:53 Nucleated RBC % (auto) 0 % 07/08/24 04:53 Nucleated RBCs # 0.0 /100WBC 07/08/24 04:53 Sodium 137 mmol/L (136-145) 07/08/24 04:53 Potassium 4.0 mmol/L (3.5-5.1) 07/08/24 04:53 Chloride 102 mmol/L (98-107) 07/08/24 04:53 Carbon Dioxide 24 mmol/L (22-29) 07/08/24 04:53 Anion Gap 15.0 (5-19) 07/08/24 04:53 BUN 10 mg/dL (8-23) 07/08/24 04:53 Creatinine 0.6 mg/dL (0.5-0.9) 07/08/24 04:53 GFR Calculation Not Reportable 07/08/24 04:53 Glucose 133 mg/dL (65-115) H 07/08/24 04:53 Calculated Osmolality 285 mOsm/kg (285-295) 07/08/24 04:53 Lactic Acid 1.3 mmol/L (0.5-2.2) 07/05/24 11:01 Calcium 8.9 mg/dL (8.5-10.5) 07/08/24 04:53 Magnesium 1.8 mg/dL (1.7-2.3) 07/08/24 04:53 Total Bilirubin 1.7 mg/dL (0.15-1.2) H 07/05/24 11:01 AST 14 U/L (0-32) 07/05/24 11:01 ALT 12 U/L (0-33) 07/05/24 11:01 Alkaline Phosphatase 107 U/L (35-105) H 07/05/24 11:01 Total Protein 7.9 g/dL (6.6-8.7) 07/05/24 11:01 Albumin 4.2 g/dL (3.5-5.2) 07/05/24 11:01 Globulin 3.7 g/dL (1.3-4.6) 07/05/24 11:01 Lipase 27 U/L (13-60) 07/05/24 11:01 Urine Color [place] (Yellow) A 07/05/24 11:54 Urine Appearance Cloudy (CLEAR) A 07/05/24 11:54 Urine pH 6.0 (5-7) 07/05/24 11:54 Ur Specific [place] 1.016 (1.005-1.030) 07/05/24 11:54 Urine Protein 1+ (Negative) A 07/05/24 11:54 Urine Glucose (UA) Negative (Normal) 07/05/24 11:54 Urine Ketones 1+ (Negative) H 07/05/24 11:54 Urine Blood Trace (Negative) A 07/05/24 11:54 Urine Nitrate Negative (Negative) 07/05/24 11:54 Urine Bilirubin Negative (Negative) 07/05/24 11:54 Urine Urobilinogen 1.0 mg/dL (Negative) 07/05/24 11:54 Ur Leukocyte Esterase 2+ (Negative) A 07/05/24 11:54 Urine RBC 0-4 /hpf (0-2) H 07/05/24 11:54 Urine WBC 5-10 /hpf (0-5) H 07/05/24 11:54 Ur Squamous Epith Cells 0-4 /hpf (0-5) H 07/05/24 11:54 Amorphous Sediment Trace /hpf 07/05/24 11:54 Urine Bacteria 1+ /hpf (NONE) H 07/05/24 11:54 Urine Mucus None /hpf 07/05/24 11:54 Procedures Performed Laparoscopic appendectomy Vitals Last Vital Signs Temp 97.6 F 07/08/24 07:36 Pulse 71 07/08/24 07:36 Resp 18 07/08/24 07:36 BP 132/85 07/08/24 07:36 Pulse Ox 92 07/08/24 07:36 O2 Del Method Room Air 07/08/24 07:36 Discharge Plan Discharge Patient Disposition: Home Condition: Stable Prescriptions: New hydrocodone-acetaminophen 7.5-325 mg tablet 1 tab PO Q6H PRN (Reason: pain) Qty: 20 0RF amoxicillin-pot clavulanate 875-125 mg tablet 1 tab PO BID Qty: 22 0RF docusate sodium [Colace] 100 mg capsule 100 mg PO BID Qty: 14 0RF polyethylene glycol 3350 [Miralax] 17 gram/dose powder 17 g PO DAILY 7 Days Qty: 119 0RF Continued Vitamin C 500 mg Tablet 250 mg PO DAILY Acidophilus Capsule 100 mg PO DAILY Claritin 10 mg Tablet 10 mg PO DAILY Fish Oil 1,000 mg (120 mg-180 mg) Capsule 1 cap PO DAILY Discharge Orders: Discharge Order (Routine); Ordered 07/08/24 Ordered By: Seferino Monroe Referrals: Kym Lazo MD [Primary Care Provider] - 2 weeks Seferino Monroe DO [Physician] - 2 weeks Discharge Diet: Advance as tolerated Discharge Activity: Resume usual activity Patient Instructions: Opioid Safety Activity Restrictions/Additional Instructions: Leave dressing on over drain removal site for 2 days and then remove. Do not soak incisions underwater for 2 weeks. Shower regularly. Discharge Attestations Time Spent in Discharge Care*: less than 30 min Quality Metrics Clinical Quality Measures [ No reported AMI, CVA or VTE this stay] Coding Level of Care Code Acute Code for [facility] Fwd Diagnoses Acute perforated appendicitis K35.32
[2024-07-08 12:07] VITALS: BP 118/75; PULSE 75; RESP 17; TEMP 36.3; O2SAT 97
[2024-07-08 13:23] VITALS: BP 118/75; PULSE 75; RESP 17; TEMP 36.3; O2SAT 97
--- NOTE | 2024-07-08 15:03 | PC.NURSE ---
Discussed discharge with patient, signs and symptoms of infection, wound care, restrictions as well as wound care, new medications and follow up appointments. Discussed DEMARCO drain, dumping and changing dressing if needs changed. Patient verbalized understanding and demonstrated dumping drain.
--- NOTE | 2024-07-08 15:07 | PC.NURSE ---
Discussed discharge with patient and spouse. Discussed new medications and continued medications. Discussed wound care as well as restrictions due to surgery. All questions answered for patient. Verbalized understanding.
[2024-07-08 16:01] VITALS: BP 118/75; PULSE 75; RESP 17; TEMP 36.3; O2SAT 97
== END 2024-07-08 13:30 | disposition home or self-care (01) | DRG 399 ==
LOC: ER 13:09 → OR 13:24 → MEDSURG 16:20
PROVIDERS: Admitting Provider Surgery; Emergency Provider Emergency Medicine; PCP Family Medicine; Visit Provider Surgery
PROC: 0DTJ4ZZ Resection of Appendix, Percutaneous Endoscopic Approach (ICD-10-PCS; CPT 44970; principal; 2024-07-05 13:30)
DX: K35.32 Acute appendicitis with perforation, localized peritonitis, and gangrene, without abscess (principal)
CPT/HCPCS: 36415; 74018; 74177; 80048; 80053; 81003; 81015; 83605; 83690; 83735; 85025; 88304; 96365; 96367; 96372; 96375; 99285; J0131; J1100; J1170; J1644; J2270; J2405; J2470; J2543; J2704; J3010; J3475; J3490; J7030; J7799

== ENCOUNTER 2024-07-05 11:18 | Outpatient (CLI) | payer MEDICARE, BC, SELFPAY ==
--- NOTE | 2024-07-05 13:21 | XR_ITS ---
WS: [id number] Examination: XR abdomen min 2V [id number] Reason for Exam: LOWER ABD PAIN Date: 07/05/2024 Comparison: None. Findings: Surgical clips in the right upper quadrant are identified. The psoas margins are well seen. Air and stool are seen within the colon. Scattered bowel gas is present. No free air is seen on the u pright film. There is no evidence of obstruction. The bone density is diminished. XR/XR abdomen min 2V [id number] Impression: There is no evidence of obstruction or free air.
== END 2024-07-05 11:19 | disposition home or self-care (01) ==
LOC: RADOUTREAD 11:21
PROVIDERS: PCP Family Medicine; Visit Provider Family Medicine
DX: R10.30 Lower abdominal pain, unspecified (principal)

== ENCOUNTER → 2024-07-23 13:02 | Outpatient (BNVA) | payer MEDICARE, BC, SELFPAY | PROVIDERS: PCP Family Medicine; Visit Provider Surgery | DX: Z90.49 Acquired absence of other specified parts of digestive tract (principal); Z98.890 Other specified postprocedural states | CPT/HCPCS: 99024 ==

== ENCOUNTER 2024-08-28 09:44 | Outpatient (CLI) | payer MEDICARE, BC, SELFPAY ==
--- NOTE | 2024-08-28 10:00 | CT_ITS ---
WS: [id number] LDCT LUNG CANCER SCREENING HISTORY: screening for lung cancer; samia dep in remission; 23.5yr hx TECHNIQUE: Axial imaging performed from the apices to 1 cm below the costophrenic angles. Coronal and sagittal reformats are submitted with axial MIP series. All CT scans at [facility] use at least one of these dose optimization techniques: automated exposure control; mA and/or kV adjustment per patient size (includes targeted exams where dose is matched to clinical indication); or iterativ e reconstruction. DLP: 55.59 mGy.cm DIvol: Mean CTDIvol: 1.00 (mGy) COMPARISON: None available. Diagnostic quality: Satisfactory Lungs: Biapical pleural thickening and tagging. No pulmonary mass or nodule. No endobronchial lesions . There is a small septation through the trachea which is probably a mucous web. Heart: Normal size heart with no pericardial effusion.. Other findings: Mild atherosclerosis aorta. Normal size pulmonary artery. Scattered coronary artery c alcifications. Moderate size hiatal hernia. Prior cholecystectomy. Moderate suprarenal aortic calcifi cations. No destructive bone lesions. Mild increase in thoracic kyphosis with osteopenia. CT/CT lung screening [id number] IMPRESSION: LUNG-RADS: 1-Negative FOLLOW UP: 12 Month: Continue annual screening with LDCT OTHER FINDINGS (S MODIFIER): None.
== END 2024-08-28 09:45 | disposition home or self-care (01) ==
LOC: RAD 09:45
PROVIDERS: PCP Family Medicine; Visit Provider Family Medicine
DX: Z12.2 Encounter for screening for malignant neoplasm of respiratory organs (principal); F17.210 Nicotine dependence, cigarettes, uncomplicated; J92.9 Pleural plaque without asbestos; K44.9 Diaphragmatic hernia without obstruction or gangrene; I70.0 Atherosclerosis of aorta; M85.80 Other specified disorders of bone density and structure, unspecified site
CPT/HCPCS: 71271

== ENCOUNTER 2024-08-29 13:49 | Outpatient (CLI) | payer MEDICARE, BC, SELFPAY ==
--- NOTE | 2024-08-29 14:00 | MM_ITS ---
WS: [id number] BILATERAL 3D TOMOSYNTHESIS DIGITAL SCREENING MAMMOGRAPHY WITH CAD CLINICAL INFORMATION: screening for breast cancer HISTORY: Screening mammogram. No current complaints. COMPARISON: 2022 TECHNIQUE: Bilateral CC and MLO views. FINDINGS: Implants removed since the prior examination. The breasts are composed of heterogeneous fibroglandular density tissue, which can limit the detectio n of small underlying mass lesions. No suspicious mass, asymmetry, calcifications, or architectural d istortion. No evidence of malignancy. Incidental punctate and lucent centered calcifications. MM/MM [facility] tomosynthesis [id number] IMPRESSION: DENSITY:The breasts are heterogeneously dense, which may obscure small masses. BI-RADS: 2 - Benign FOLLOW UP: 1 Year Follow-up Recommend return to annual screening mammography.
== END 2024-08-29 13:50 | disposition home or self-care (01) ==
LOC: RAD 13:50
PROVIDERS: PCP Family Medicine; Visit Provider Family Medicine
DX: Z12.31 Encounter for screening mammogram for malignant neoplasm of breast (principal); R92.333 Mammographic heterogeneous density, bilateral breasts; R92.1 Mammographic calcification found on diagnostic imaging of breast
CPT/HCPCS: 77063; 77067

== ENCOUNTER → 2024-09-18 09:05 | Outpatient (BNVA) | payer MEDICARE, BC, SELFPAY | PROVIDERS: PCP Family Medicine; Visit Provider Family Medicine | DX: Z13.6 Encounter for screening for cardiovascular disorders (principal); R73.9 Hyperglycemia, unspecified; I25.10 Atherosclerotic heart disease of native coronary artery without angina pectoris | CPT/HCPCS: 80061; 83036 ==

== ENCOUNTER 2024-11-27 15:15 | Outpatient (CLI) | payer MEDICARE, BC, SELFPAY ==
--- NOTE | 2024-11-27 15:30 | XR_ITS ---
WS: [id number] SCREENING DEXA SCAN [facility] CLINICAL INFORMATION: postmenopausal; screening for osteoporosis COMPARISON: 2018 FINDINGS: The L1-L4 bone mineral density measures 0.936 g/cm2. This corresponds to a T score of -2.0 and Z scor e of -0.7. Left femoral neck bone mineral density measures 0.843 g/cm2. This corresponds to a T score of -1.3 an d Z score of 0.0. Right femoral neck bone mineral density measures 0.812 g/cm2. This corresponds to a T score -1.6of an d Z score of -0.2. Mean femoral neck bone mineral density measures 0.828 g/cm2. This corresponds to a T score of -1.4 an d Z score of -0.1. XR/XR DEXA axial skeleton* [id number] IMPRESSION: Osteopenia lumbar spine. Osteopenia femoral necks. Patient's FRAX calculated 10 year probability for major osteoporotic fracture i s 16.3% and osteoporotic hip fracture is 4.8%. Bone marrow density lumbar spine decreased -0.3% Bone mineral density femoral necks decreased -3.5%
== END 2024-11-27 15:16 | disposition home or self-care (01) ==
LOC: RAD 15:16
PROVIDERS: PCP Family Medicine; Visit Provider Family Medicine
DX: Z78.0 Asymptomatic menopausal state (principal); M85.88 Other specified disorders of bone density and structure, other site; M85.852 Other specified disorders of bone density and structure, left thigh; M85.851 Other specified disorders of bone density and structure, right thigh
CPT/HCPCS: 77080

== ENCOUNTER → 2025-07-15 09:35 | Outpatient (BNVA) | payer MEDICARE, BC, SELFPAY | PROVIDERS: PCP Family Medicine; Visit Provider Family Medicine | DX: Z13.6 Encounter for screening for cardiovascular disorders (principal); R73.9 Hyperglycemia, unspecified; I25.10 Atherosclerotic heart disease of native coronary artery without angina pectoris; R53.83 Other fatigue; M85.80 Other specified disorders of bone density and structure, unspecified site; M85.839 Other specified disorders of bone density and structure, unspecified forearm; Z78.0 Asymptomatic menopausal state | CPT/HCPCS: 80053; 80061; 82306; 82310; 83970; 84439; 84443; 85025 ==

== ENCOUNTER 2025-08-30 11:08 | Outpatient (CLI) | payer MEDICARE, BC, SELFPAY ==
--- NOTE | 2025-08-30 11:15 | CT_ITS ---
WS: [id number] LDCT LUNG CANCER SCREENING HISTORY: screening; ex smoker, quit 2019; 23.5 pk yr TECHNIQUE: Axial imaging performed from the apices to 1 cm below the costophrenic angles. Coronal and sagittal reformats are submitted with axial MIP series. All CT scans at [facility] use at least one of these dose optimization techniques: automated exposure control; mA and/or kV adjustment per patient size (includes targeted exams where dose is matched to clinical indication); or iterative reconstruction. DLP: 53.97 mGy.cm DIvol: Mean CTDIvol: 0.80 (mGy) COMPARISON: 08/28/2024 Diagnostic quality: Satisfactory Lungs: Moderate pulmonary hyperexpansion. Mild biapical pleural thickening and tagging. No pulmonary mass or nodule. No endobronchial lesions. Heart: Normal size heart with no pericardial effusion.. Other findings: Minimal atherosclerosis aorta. Normal size aorta and pulmonary artery. Soft tissue mass in the RIGHT chest wall associated with the RIGHT breast. This mass measures 6.8 x 4.6 cm and has slightly elevated Hounsfield units. Large hiatal hernia. No adrenal mass. Mild increase in thoracic kyphosis. CT/CT lung screening [id number] IMPRESSION: LUNG-RADS: 2S-Benign Appearance or Behavior with Significant Findings FOLLOW UP: 12 Month: Continue annual screening with LDCT OTHER FINDINGS (S MODIFIER): New mass in the RIGHT chest wall associated with t he RIGHT breast. Breast implants were removed since 01/04/2023. The changes in th e RIGHT breast may all be postoperative and related to a seroma. Recommend diag nostic mammogram at this time with ultrasound evaluation.
== END 2025-08-30 11:09 | disposition home or self-care (01) ==
LOC: RAD 11:09
PROVIDERS: PCP Family Medicine; Visit Provider Family Medicine
DX: Z12.2 Encounter for screening for malignant neoplasm of respiratory organs (principal); F17.210 Nicotine dependence, cigarettes, uncomplicated; R91.8 Other nonspecific abnormal finding of lung field; J92.9 Pleural plaque without asbestos; K44.9 Diaphragmatic hernia without obstruction or gangrene; M40.294 Other kyphosis, thoracic region; N63.10 Unspecified lump in the right breast, unspecified quadrant
CPT/HCPCS: 71271

== ENCOUNTER 2025-09-05 08:30 | Outpatient (CLI) | payer MEDICARE, BC, SELFPAY ==
--- NOTE | 2025-09-05 08:30 | MM_ITS ---
WS: [id number] BILATERAL 3D TOMOSYNTHESIS DIGITAL DIAGNOSTIC MAMMOGRAPHY WITH CAD CLINICAL INFORMATION: LDCT shows abnormal R breast area so needs this HISTORY: RIGHT breast lump also seen Lung screening CT COMPARISON: 2023 TECHNIQUE: Bilateral CC, MLO, and ML views. FINDINGS: Scattered fibroglandular densities bilaterally. RIGHT posterior chest wall opacity also seen on lung screening CT suspicious for postoperative seroma after implant removal. Ultrasound is pending. Implant removal in 2022 Unremarkable LEFT breast ULTRASOUND BREAST RIGHT TECHNIQUE: Ultrasound right breast focused area of concern. CLINICAL INFORMATION: LDCT shows abnormal R breast area so needs this FINDINGS: Ultrasound RIGHT breast area of concern. Complex encapsulated fluid collection with internal septations and debris but no vascularity. This measures approximately 7.2 x 6.5 x 3.8 cm. This most likely represents a complex postoperative seroma from prior breast implant removal. Recommend breast surgery consultation. There was a small collection on the initial lung screening CT in 2023 after breast implant removal which has increased in size today. Percutaneous biopsy not recommended due to collection being well encapsulated and subsequent risk of rupture with deep breast/chest wall infection MM/MM diag tomosynthesis [id number] IMPRESSION: DENSITY: There are scattered areas of fibroglandular density. BI-RADS: 4 - Suspicious Finding - Biopsy Should Be Considered. FOLLOW UP: See Report Recommend breast surgery consultation for evaluation of the complex encapsulate d fluid collection likely sequelae from prior breast implant removal
--- NOTE | 2025-09-05 09:00 | US_ITS ---
WS: [id number] BILATERAL 3D TOMOSYNTHESIS DIGITAL DIAGNOSTIC MAMMOGRAPHY WITH CAD CLINICAL INFORMATION: LDCT shows abnormal R breast area so needs this HISTORY: RIGHT breast lump also seen Lung screening CT COMPARISON: 2023 TECHNIQUE: Bilateral CC, MLO, and ML views. FINDINGS: Scattered fibroglandular densities bilaterally. RIGHT posterior chest wall opacity also seen on lung screening CT suspicious for postoperative seroma after implant removal. Ultrasound is pending. Implant removal in 2022 Unremarkable LEFT breast ULTRASOUND BREAST RIGHT TECHNIQUE: Ultrasound right breast focused area of concern. CLINICAL INFORMATION: LDCT shows abnormal R breast area so needs this FINDINGS: Ultrasound RIGHT breast area of concern. Complex encapsulated fluid collection with internal septations and debris but no vascularity. This measures approximately 7.2 x 6.5 x 3.8 cm. This most likely represents a complex postoperative seroma from prior breast implant removal. Recommend breast surgery consultation. There was a small collection on the initial lung screening CT in 2023 after breast implant removal which has increased in size today. Percutaneous biopsy not recommended due to collection being well encapsulated and subsequent risk of rupture with deep breast/chest wall infection US/US breast RT complete [id number] IMPRESSION: DENSITY: There are scattered areas of fibroglandular density. BI-RADS: 4 - Suspicious Finding - Biopsy Should Be Considered. FOLLOW UP: See Report Recommend breast surgery consultation for evaluation of the complex encapsulate d fluid collection likely sequelae from prior breast implant removal
== END 2025-09-05 08:31 | disposition home or self-care (01) ==
LOC: RAD 08:31
PROVIDERS: PCP Family Medicine; Visit Provider Family Medicine
DX: N63.10 Unspecified lump in the right breast, unspecified quadrant (principal); R92.321 Mammographic fibroglandular density, right breast; N64.89 Other specified disorders of breast
CPT/HCPCS: 76641; 77062; G0279